=== PATIENT | male | born 1960 | race Caucasian/White ===

== ENCOUNTER 2018-10-31 07:52 | Day surgery (SDC) | payer OTHER ==
[~2018-10-31] VITALS: Ht 167.6 cm; Wt 73.0 kg
[~2018-10-31 07:52] MED LIST: CYCL10TA7 PO; DM MEDS; HYDR-4011 PO; IBUP-1561 PO
[2018-10-31] MEDS ORDERED: ASPI-535 PO (08:19)
[2018-10-31] MEDS ORDERED: METO-335 PO (08:19)
[2018-10-31] MEDS ORDERED: METF500T24 PO (08:19)
[2018-10-31] MEDS ORDERED: CHOL100062 PO (08:19)
[2018-10-31] MEDS ORDERED: LISI10TA2 PO (08:19)
[2018-10-31] MEDS ORDERED: ATOR20TA65 PO (08:19)
[2018-10-31] MEDS ORDERED: GLIP5TAB13 PO (08:19)
[2018-10-31 08:20] VITALS: Ht 167.6 cm; Wt 73.0 kg
[2018-10-31 08:32] VITALS: BP 140/83; PULSE 76; RESP 20
[2018-10-31] MEDS ORDERED: FENTAnyl 50 MCG/ML VIAL ONE (09:16)
[2018-10-31] MEDS ORDERED: MIDAZOLAM 1 MG/ML 2 ML INJ ONE ×2 (09:17)
[2018-10-31 09:37] VITALS: BP 122/74; PULSE 87; RESP 12
== END 2018-10-31 11:01 | disposition home or self-care (01) ==
LOC: GIL 07:52
PROVIDERS: ATTEND Internal Medicine Gastroenterology
DX: Z12.11 Encounter for screening for malignant neoplasm of colon (principal); K64.8 Other hemorrhoids; K57.30 Diverticulosis of large intestine without perforation or abscess without bleeding; E11.9 Type 2 diabetes mellitus without complications
CPT/HCPCS: 45378; 82962; J2250; J3010